=== PATIENT | male | born 1990 | race Caucasian/White ===

== ENCOUNTER 2024-07-10 21:12 | Emergency (ER) | payer SELFPAY ==
[~2024-07-10] VITALS: Ht 170.2 cm; Wt 79.0 kg
[2024-07-10 21:19] VITALS: TEMP 36.7; O2SAT 100
[2024-07-10 23:17] VITALS: BP 117/69; PULSE 64; RESP 16; O2SAT 99
== END 2024-07-10 23:18 | disposition home or self-care (01) ==
LOC: ER 21:12
DX: M54.50 Low back pain, unspecified (principal); M54.2 Cervicalgia; V89.2XXA Person injured in unspecified motor-vehicle accident, traffic, initial encounter; Y93.89 Activity, other specified; Y92.89 Other specified places as the place of occurrence of the external cause; Y99.8 Other external cause status
CPT/HCPCS: 99281